=== PATIENT | male | born 1955 | race Caucasian/White ===

== ENCOUNTER 2020-08-22 06:25 | Day surgery (SDC) | payer MEDICAID ==
[~2020-08-22 06:25] MED LIST: Midazolam 1 MG/ML 2 ML SDV ONE; fentaNYL 100 MCG/2 ML SDV ONE
[2020-08-22] MEDS ORDERED: Midazolam 1 MG/ML 2 ML SDV IV ONE ×4 (06:26→07:12)
[2020-08-22] MEDS ORDERED: fentaNYL 100 MCG/2 ML SDV IV ONE ×3 (06:26→07:03)
[2020-08-22] MEDS ORDERED: Dextrose 5%-0.45% NaCl 1,000 ML IV SCH (06:45)
--- NOTE | 2020-08-22 08:12 | OR ---
DATE: 08/22/2020 PROCEDURE: Total colonoscopy and multiple cold snare polypectomies. INSTRUMENT USED: PCF-H190DL Olympus video colonoscope. PREMEDICATIONS: Fentanyl 100 mcg intravenous, Versed 2.5 mg intravenous. Nasal O2 cannula. The procedure was done under pulse oximetry, BP recording, and cardiac rehabilitation program director. INDICATION: The patient with previous colonic tubular adenomata including right colonic sessile polyp removed, has noted recent alteration in bowel habits, unexplained and not responsive to medical measures. Colonoscopic examination is done for detection of any polypoid lesions and removal, endoscopic hemostasis therapy if needed. DESCRIPTION OF PROCEDURE: Initial rectal exam was unremarkable. Rigid anoscopy was normal. The colonoscope was passed with ease. Numerous diminutive benign- appearing polyps, 5 in number were noted, photographs were taken, cold snare polypectomies were done, the tissues were retrieved and sent for histopathology. The scope was passed with ease up to the ileocecal area. Photographs were taken of the normal-appearing cecum, identified by landmarks of appendiceal orifice and double-bulged ileocecal folds. No bleeding was noted from any of the visualized areas at the commencement of the examination. The bowel preparation was found to be adequate, [place] scale 2 in all the regions, total score 6. No stricture. No vascular ectasia. No large isolated ulcerations seen. No evidence of diffuse inflammatory bowel disease in the form of friability, contact bleeding, or ulcerations. Probing the proximal sides of folds and flexures using adequate distention and clearing up the stool material, withdrawal of the scope was made, cecum to rectum time over 6 minutes. No bleeding was noted from any of the visualized areas at the completion of examination. IMPRESSION: Diminutive rectal polyps. The patient tolerated the procedure well. [facility] /[id number]
[2020-08-23 08:26] VITALS: BP 114/81; PULSE 86
== END 2020-08-22 09:26 | disposition home or self-care (01) ==
LOC: DL.ENDO 06:25
PROVIDERS: ATTEND Internal Medicine Gastroenterology
DX: K62.1 Rectal polyp (principal); E66.09 Other obesity due to excess calories; J44.9 Chronic obstructive pulmonary disease, unspecified; F17.200 Nicotine dependence, unspecified, uncomplicated; Z68.32 Body mass index [BMI] 32.0-32.9, adult
CPT/HCPCS: 45385; J2250; J3010; J7042

== ENCOUNTER 2021-06-04 14:29 | Emergency (ER) | payer MEDICAID ==
[2021-06-04 14:45] VITALS: BP 143/91; PULSE 117
[2021-06-04] MEDS ORDERED: Albuterol/Ipratropium 3.0-0.5 MG/3 ML Neb Soln ONE (15:01)
[2021-06-04] MEDS ORDERED: methylPREDNISolone Sodium Succinate 125 MG/2 ML SDV IVPUSH ONE (15:45)
[2021-06-04 15:52] LABS: ANION GAP 10.4 mEq/L (7-13); CHLORIDE,CL 105 mmol/L (98-107); SODIUM,NA 142 mmol/L (136-145)
--- NOTE | 2021-06-04 16:05 | CR ---
EXAMINATION: Chest 1V Frontal SEX: Male AGE: 65 years CLINICAL HISTORY: 65-year-old male smoker complaining of shortness of breath (SOB). Comparison CXR November 2013. Interpretation: Abnormal. Recommend CT scan chest with IV contrast. 1. Huge new greater than 6.5 cm diameter right perihilar mass lesion (neoplasm? Ascending aortic aneurysm?) since November 2013 exam. Lymphadenopathy? Large ipsilateral pleural effusion and underlying atelectasis/infiltrate right lower lobe. 2. Blunting of the contralateral left costophrenic sulcus. 3. Normal cardiac silhouette (size and configuration). No cephalization of vascular flow or alveolar edema. 4. No pneumothorax or pneumomediastinum. 5. No lung mass or infiltrate/atelectasis in contralateral left lung.
[2021-06-04] MEDS ORDERED: Iopamidol 612 MG/ML 100 ML Bottle IVPUSH ONE (16:23)
[2021-06-04 16:24] LABS: CORONAVIRUS COVID-19 NAA NEGATIVE (NEGATIVE)
--- NOTE | 2021-06-04 17:19 | CT ---
EXAMINATION: Chest w Cont SEX: Male AGE: 65 years CLINICAL HISTORY: 65-year-old male, heavy smoker, complaining of shortness of breath (SOB) who has a significant history of "right lung mass biopsied by Dr. Hammond, 3 years ago". CXR: Huge right lung mass with ipsilateral effusion. Scan technique: Volume acquisition of data from the chest (bony thorax, lungs and mediastinum) obtained during the intravenous administration 75 cc nonionic Isovue contrast 3 cc/s via injector while patient was lying supine on the Siemens multislice scanner [place], [place]. All data archived in the PACS system for storage, reformatting axial/sagittal/coronal planes and study (lung, mediastinal, bone and soft tissue windows). Interpretation: Abnormal. 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 Clinical question 1. Huge 13.0 cm L x 7.0 cm W right perihilar MASS LESION that extends into the ipsilateral right paratracheal region of the superior mediastinum and wraps around the ipsilateral bronchus, extending into the subcarinal, middle mediastinum. 2. Note: Significant compromise of the crossing left subclavian vein and superior vena cava on the right suggests significant risk for probable superior vena caval syndrome. 3. Right mainstem bronchus also compromised with associated distal lower lobe atelectasis and/or infiltrate. 4. Huge (probable malignant) dependent right pleural effusion. 5. Normal cardiac silhouette size and configuration). No pericardial effusion. No vascular congestion or alveolar edema. Normal caliber thoracic aorta and although this placement no obvious erosion by the tumor mass. 6.Generalized osteopenia; old compression T12 vertebral body with marginal spondylosis; *suspicious osteoblastic appearance T2 vertebral body (possible hemangioma but metastatic disease probable). 7. No left lung mass lesion, alveolar infiltrate, atelectasis/collapse, or peripheral "groundglass" interstitial lung density. 8. No pneumothorax or pneumomediastinum. No free subdiaphragmatic air. 9. Upper liver, stomach, spleen and adrenal glands unremarkable.
--- NOTE | 2021-06-04 18:04 | EDM.PDOC ---
Scribed by Estefania Espinosa 06/04/21 1804 for Arturo Mianya PA ED HPI GENERAL MEDICAL PROBLEM - General Chief Complaint: Respiratory Problem Stated Complaint: COPD REALLY STRUGGLING TO BREATH Time Seen by Provider: 06/04/21 15:35 Source of Information: Reports: Patient, RN, RN Notes Reviewed History Limitations: Reports: No Limitations - History of Present Illness INITIAL COMMENTS - FREE TEXT/NARRATIVE: Patient presents to ED with increased shortness of breath x1 week. He is much worse today. He is a current smoker. He used to smoke 3 packs a day and now 6 to 10 cigarettes a day. Onset: Gradual Duration: Constant Location: Reports: Chest Quality: Reports: Ache Severity: Moderate Improves with: Reports: None Worsens with: Reports: None Associated Symptoms: Reports: No Other Symptoms Treatments SHEEP FARMER: Reports: Oxygen, Other (see below) Other Treatments SHEEP FARMER: lab - Related Data Allergies Allergy/AdvReac Type Severity Reaction Status Date / Time No Known Allergies Allergy Verified 06/04/21 14:57 Home Meds: Home Meds Albuterol [Proair HFA] 2 puff INH Q6HR PRN 09/04/15 [History] Fluticasone Propion/Salmeterol [Advair 250-50 Diskus] 1 puff INH BID 09/04/15 [History] Tiotropium [Spiriva Handihaler] 1 inh INH DAILY 07/07/18 [History] Naproxen Sodium [Aleve] 220 mg PO ASDIRECTED PRN 08/18/20 [History] Trolamine Salicylate/Aloe Vera [Aspercreme 10%] 1 applic TOP BID 08/21/20 [History] Past Medical History - Past Health History Medical/Surgical History: Denies Medical/Surgical History HEENT History: Reports: Impaired Vision, Other (See Below) Other HEENT History: LEFT EYE VISION UNCORRECTABLE Cardiovascular History: Reports: High Cholesterol, Hypertension Other Cardiovascular History: Dislipidemia Respiratory History: Reports: Asthma, COPD Gastrointestinal History: Reports: None Genitourinary History: Reports: BPH Musculoskeletal History: Reports: Fracture, Osteoarthritis, RA Other Musculoskeletal History: problems with lumber discs Neurological History: Reports: Neuropathy, Peripheral Psychiatric History: Reports: None Other Psychiatric History: put him on an antidepressant, but he says he doesnt want it. Endocrine/Metabolic History: Reports: Obesity/BMI 30+ Hematologic History: Reports: None Immunologic History: Reports: Other (See Below) Other Immunologic History: RA Oncologic (Cancer) History: Reports: None Dermatologic History: Reports: Other (See Below) Other Dermatologic History: areas that don't heal - Infectious Disease History Infectious Disease History: Reports: Chicken Pox, Measles - Past Surgical History Head Surgeries/Procedures: Reports: None HEENT Surgical History: Reports: None Cardiovascular Surgical History: Reports: None Respiratory Surgical History: Reports: Other (See Below) Other Respiratory Surgeries/Procedures: BRONCOSCOPY GI Surgical History: Reports: Appendectomy, Colonoscopy Male Surgical History: Reports: None Endocrine Surgical History: Reports: None Neurological Surgical History: Reports: None Musculoskeletal Surgical History: Reports: None Oncologic Surgical History: Reports: None Dermatological Surgical History: Reports: None Social & Family History - Family History Family Medical History: No Pertinent Family History - Tobacco Use Tobacco Use Status *Q: Current Every Day Tobacco User Years of Tobacco use: 40 Packs/Tins Daily: 1 - Caffeine Use Caffeine Use: Reports: Coffee Caffeine Use Comment: 5 cups daily - Recreational Drug Use Recreational Drug Use: No ED ROS GENERAL - Review of Systems Review Of Systems: Comprehensive ROS is negative, except as noted in HPI. ED EXAM, GENERAL - Physical Exam Exam: See Below Exam Limited By: No Limitations General Appearance: Alert, Moderate Distress Eye Exam: Bilateral Eye: EOMI, Normal Inspection, PERRL Ears: Normal External Exam, Normal Canal, Hearing Grossly Normal, Normal TMs Nose: Normal Inspection, Normal Mucosa, No Blood Throat/Mouth: Normal Inspection, Normal Lips, Normal Teeth, Normal Gums, Normal Oropharynx, Normal Voice, No Airway Compromise Head: Atraumatic, Normocephalic Neck: Normal Inspection, Supple, Non-Tender, Full Range of Motion Respiratory/Chest: Decreased Breath Sounds, Rhonchi (bilateral lower lobes) Cardiovascular: Tachycardia, Other (no murmurs) GI/Abdominal: Normal Bowel Sounds, Soft, Non-Tender, No Organomegaly, No Distention, No Abnormal Bruit, No Mass (Male) Exam: Deferred Rectal (Males) Exam: Deferred Back Exam: Normal Inspection, Full Range of Motion, NT Extremities: Normal Inspection, Normal Range of Motion, Non-Tender, Normal Capillary Refill, No Pedal Edema Neurological: Alert, Oriented, CN II-XII Intact, Normal Cognition, Normal Gait, Normal Reflexes, No Motor/Sensory Deficits Psychiatric: Normal Affect, Normal Mood Skin Exam: Warm, Dry, Intact, Normal Color, No Rash Lymphatic: No Adenopathy #1 Interpretation EKG Date: 06/04/21 Time: 15:46 Rhythm: Other (sinus tachycardia) Rate (Beats/Min): 110 [place]: Normal P-Wave: Present QRS: Other (left atrial enlargement) ST-T: Normal QT: Normal Course - Vital Signs Last Recorded V/S: Last Vital Signs Temp 96.9 F 06/04/21 14:43 Pulse 117 H 06/04/21 14:43 Resp 20 06/04/21 14:43 BP 143/91 H 06/04/21 14:43 Pulse Ox 93 L 06/04/21 14:54 - Orders/Labs/Meds Orders: Active Orders 24 hr Category Date Time Status EKG Documentation Completion [RC] STAT Care 06/04/21 15:28 Active RT Aerosol Therapy [RC] ASDIRECTED Care 06/04/21 15:20 Active CULTURE BLOOD [BC] Stat Lab 06/04/21 15:46 Ordered REFLEX LACTIC ACID YES OR NO [CHEM] Routine Lab 06/04/21 16:07 Received Labs: Laboratory Tests 06/04/21 06/04/21 06/04/21 Range/Units 15:06 15:06 15:06 WBC (5.0-10.0) 10^3/uL RBC (4.6-6.2) 10^6/uL Hgb (14.0-18.0) g/dL Hct (40.0-54.0) % MCV (80-100) fL MCH (27.0-34.0) pg MCHC (33.0-35.0) g/dL Plt Count (150-450) 10^3/uL Neut % (Auto) (42.2-75.2) % Lymph % (Auto) (20.5-50.1) % Esmeralda % (Auto) (2-8) % Eos % (Auto) (1.0-3.0) % Baso % (Auto) (0.0-1.0) % D-Dimer, Quantitative 824 H (0-400) ng/mL Sodium 142 (136-145) mmol/L Potassium 4.4 (3.5-5.1) mmol/L Chloride 105 (98-107) mmol/L Carbon Dioxide 31 (21-32) mmol/L Anion Gap 10.4 (7-13) mEq/L BUN 19 H (7-18) mg/dL Creatinine 1.02 (0.70-1.30) mg/dL Est Cr Clr Drug Dosing 76.54 mL/min Estimated GFR (MDRD) > 60 BUN/Creatinine Ratio 18.6 (No establ ref range) Glucose 117 H (70-99) mg/dL Lactic Acid 2.7 H* (0.4-2.0) mmol/L Calcium 9.7 (8.5-10.1) mg/dL Total Bilirubin 0.4 (0.2-1.0) mg/dL AST 16 (15-37) U/L ALT 21 (16-63) U/L Alkaline Phosphatase 107 (46-116) U/L Troponin I High Sens 20 (<=76) pg/mL Total Protein 8.2 (6.4-8.2) g/dL Albumin 3.3 L (3.4-5.0) g/dL Globulin 4.9 Albumin/Globulin Ratio 0.67 Influenza Type A RNA (NEGATIVE) Influenza Type B RNA (NEGATIVE) SARS-CoV-2 RNA (ELSIE) (NEGATIVE) 06/04/21 06/04/21 Range/Units 15:35 15:35 WBC 7.6 (5.0-10.0) 10^3/uL RBC 5.15 (4.6-6.2) 10^6/uL Hgb 14.8 (14.0-18.0) g/dL Hct 46.0 (40.0-54.0) % MCV 89.3 (80-100) fL MCH 28.7 (27.0-34.0) pg MCHC 32.2 L (33.0-35.0) g/dL Plt Count 283 (150-450) 10^3/uL Neut % (Auto) 68.5 (42.2-75.2) % Lymph % (Auto) 18.4 L (20.5-50.1) % Esmeralda % (Auto) 9.9 H (2-8) % Eos % (Auto) 2.5 (1.0-3.0) % Baso % (Auto) 0.7 (0.0-1.0) % D-Dimer, Quantitative (0-400) ng/mL Sodium (136-145) mmol/L Potassium (3.5-5.1) mmol/L Chloride (98-107) mmol/L Carbon Dioxide (21-32) mmol/L Anion Gap (7-13) mEq/L BUN (7-18) mg/dL Creatinine (0.70-1.30) mg/dL Est Cr Clr Drug Dosing mL/min Estimated GFR (MDRD) BUN/Creatinine Ratio (No establ ref range) Glucose (70-99) mg/dL Lactic Acid (0.4-2.0) mmol/L Calcium (8.5-10.1) mg/dL Total Bilirubin (0.2-1.0) mg/dL AST (15-37) U/L ALT (16-63) U/L Alkaline Phosphatase (46-116) U/L Troponin I High Sens (<=76) pg/mL Total Protein (6.4-8.2) g/dL Albumin (3.4-5.0) g/dL Globulin Albumin/Globulin Ratio Influenza Type A RNA Negative (NEGATIVE) Influenza Type B RNA Negative (NEGATIVE) SARS-CoV-2 RNA (ELSIE) Negative (NEGATIVE) Meds: Medications Discontinued Medications Generic Name Dose Route Start Last Admin Trade Name Saida PRN Reason Stop Dose Admin Albuterol/Ipratropium Confirm 06/04/21 15:01 06/04/21 15:24 Albuterol/Ipratropium 3.0-0.5 Mg/3 Ml Neb Soln Administered 06/04/21 15:02 3 ml Dose Administration 3 ml .ROUTE .STK-MED ONE Iopamidol 100 ml 06/04/21 16:23 06/04/21 16:59 Iopamidol 612 Mg/Ml 100 Ml Bottle IVPUSH 06/04/21 16:24 75 ml ONETIME ONE Administration Methylprednisolone Sodium Succinate 125 mg 06/04/21 15:45 06/04/21 16:20 Methylprednisolone Sodium Succinate 125 Mg/2 Ml Sdv IVPUSH 06/04/21 15:46 125 mg ONETIME ONE Administration Departure - Departure Time of Disposition: 17:58 Disposition: Against Medical Advice 07 Condition: Poor Clinical Impression: Mass of right lung, Left against medical advice - Discharge Information *PRESCRIPTION DRUG MONITORING PROGRAM REVIEWED*: Not Applicable *COPY OF PRESCRIPTION DRUG MONITORING REPORT IN PATIENT KAREN: Not Applicable Forms: ED Department Discharge Care Plan Goals: The patient was advised of the examination, lab, x-ray and CT results during the visit. A call was initially placed to [facility] in [place] for a possible transfer, but prior to making arrangements, the patient refused to be transferred for continued evaluation and management. The patient will contact his primary care facility tomorrow for further arrangements. The patient was again advised of the size and severity of this mass, but the patient refused any additional treatments or transfer to a larger facility. The patient was encouraged to either return to the ED or follow-up with his primary care facility tomorrow for continued evaluation and management. Sepsis Event Note (ED) - Evaluation Sepsis Screening Result: No Definite Risk - Focused Exam Vital Signs: Vital Signs Temp Pulse Resp BP Pulse Ox 06/04/21 14:54 93 L 06/04/21 14:43 96.9 F 117 H 20 143/91 H 88 L 06/04/21 14:40 93 L - My Orders Last 24 Hours: My Active Orders 06/04/21 15:20 RT Aerosol Therapy [RC] ASDIRECTED 06/04/21 15:28 EKG Documentation Completion [RC] STAT 06/04/21 15:46 CULTURE BLOOD [BC] Stat 06/04/21 16:07 REFLEX LACTIC ACID YES OR NO [CHEM] Routine - Assessment/Plan Last 24 Hours: My Active Orders 06/04/21 15:20 RT Aerosol Therapy [RC] ASDIRECTED 06/04/21 15:28 EKG Documentation Completion [RC] STAT 06/04/21 15:46 CULTURE BLOOD [BC] Stat 06/04/21 16:07 REFLEX LACTIC ACID YES OR NO [CHEM] Routine I have read and agree with the documentation that has been completed regarding this visit. By signing this record, I attest that the documentation was completed in my physical presence and is an accurate record of the encounter.
[2021-06-04] MEDS ORDERED: Naproxen 250 MG Tab PO ONE (20:09)
[2021-06-04] MEDS ORDERED: LORazepam 2 MG/ML SDV IVPUSH ONE (20:23)
== END 2021-06-04 21:15 | disposition left against medical advice (07) ==
LOC: DL.ED 14:29
DX: R91.8 Other nonspecific abnormal finding of lung field (principal); J44.9 Chronic obstructive pulmonary disease, unspecified; I10 Essential (primary) hypertension; E66.9 Obesity, unspecified; Z72.0 Tobacco use; Z20.822 Contact with and (suspected) exposure to COVID-19; Z53.8 Procedure and treatment not carried out for other reasons; Z68.29 Body mass index [BMI] 29.0-29.9, adult
CPT/HCPCS: 0240U; 36415; 71045; 71260; 80053; 83605; 84484; 85025; 85379; 87040; 93005; 94640; 96374; 96375; 99285; A9270; J2060; J2930; Q9967; J7620-GY

== ENCOUNTER 2021-08-19 14:05 | Emergency (ER) | payer MEDICAID ==
[2021-08-19] MEDS ORDERED: Lidocaine 2% Viscous Solution 15 ML UD TOP ONE (14:23)
[2021-08-19 15:22] VITALS: BP 124/85; PULSE 113
== END 2021-08-19 15:37 | disposition home or self-care (01) ==
LOC: DL.ED 14:05
DX: H61.21 Impacted cerumen, right ear (principal); J44.9 Chronic obstructive pulmonary disease, unspecified; E78.00 Pure hypercholesterolemia, unspecified; I10 Essential (primary) hypertension; N40.0 Benign prostatic hyperplasia without lower urinary tract symptoms; E66.9 Obesity, unspecified; Z68.27 Body mass index [BMI] 27.0-27.9, adult; Z87.891 Personal history of nicotine dependence
CPT/HCPCS: 69209; 99282; A9270